=== PATIENT | female | born 1935 | race Caucasian/White ===

== ENCOUNTER 2019-09-25 12:32 | Outpatient (CLI) | payer MEDICARE, SELFPAY ==
--- NOTE | ~2019-09-25 | XR_ITS ---
XR wrist LT min 3V, XR hand LT min 3V 09/25/2019 13:00 Indication: Left wrist pain after fall. Procedure: 4 views left wrist. 3 views left hand Comparison: No prior studies for comparison. Findings: There is a nondisplaced impaction fracture of the distal radial metaphysis. There is modera te polyarticular osteoarthritis involving the first CMC, MCP and interphalangeal joints there are loo se bodies adjacent to the first CMC joint. Impression: 1: Nondisplaced impaction fracture of the radial metaphysis. 2: Moderate polyarticular osteoarthritis. Reviewed, dictated and finalized at location A. Impression: 1: Nondisplaced impaction fracture of the radial metaphysis. 2: Moderate polyarticular osteoarthritis. Impression: 1: Nondisplaced impaction fracture of the radial metaphysis. 2: Moderate polyarticular osteoarthritis.
== END 2019-09-25 12:33 | disposition home or self-care (01) ==
LOC: CHSIMG 12:41
PROVIDERS: PCP Internal Medicine; Visit Provider Internal Medicine
DX: M25.532 Pain in left wrist (principal)
CPT/HCPCS: 73110; 73130

== ENCOUNTER 2019-10-04 09:59 | Outpatient (CLI) | payer MEDICARE, SELFPAY ==
--- NOTE | ~2019-10-04 | XR_ITS ---
XR wrist LT min 3V DATE: 10/04/2019 10:24 INDICATION: Follow-up of distal radial fracture TECHNIQUE: 3 views COMPARISON: 09/25/2019 left breast FINDINGS: There is a fiberglass cast of the left wrist, providing external fixation for a nondisplace d distal radial metaphyseal fracture. There is minimal dorsal inclination of distal radial articular surface. Radiocarpal alignment is preserved. Osteoarthritis at the first carpometacarpal joint. IMPRESSION: Casted nondisplaced distal radial metaphyseal fracture with minimal dorsal inclination of the distal radial articular surface Reviewed, dictated and finalized at location A.
== END 2019-10-04 10:00 | disposition home or self-care (01) ==
LOC: CHSIMG 10:02
PROVIDERS: PCP Internal Medicine; Visit Provider Internal Medicine
DX: S52.502D Unspecified fracture of the lower end of left radius, subsequent encounter for closed fracture with routine healing (principal)
CPT/HCPCS: 73110

== ENCOUNTER 2019-10-18 09:07 | Outpatient (CLI) | payer MEDICARE, SELFPAY ==
--- NOTE | ~2019-10-18 | XR_ITS ---
EXAMINATION: XR wrist LT min 3V DATE: 10/18/2019 09:37 INDICATION: Radius fracture follow-up TECHNIQUE: Posteroanterior, ulnar deviation, oblique, and lateral views of the left wrist were obtain ed. COMPARISON: 10/04/2019 FINDINGS: There is a transverse fracture of the distal radius. There appears to be mild increase in c alcified callus at the fracture site. Bone alignment is normal. Fine osseous detail is obscured by th e cast material. There is moderate osteoarthritis at the triscaphe and first carpometacarpal joints. IMPRESSION: 1. Casted distal radius fracture with apparent mild increase in calcified callus. Reviewed, dictated and finalized at location A. IMPRESSION: 1. Casted distal radius fracture with apparent mild increase in calcified callu s.
== END 2019-10-18 09:08 | disposition home or self-care (01) ==
LOC: CHSIMG 09:10
PROVIDERS: PCP Internal Medicine; Visit Provider Internal Medicine
DX: S52.502D Unspecified fracture of the lower end of left radius, subsequent encounter for closed fracture with routine healing (principal)
CPT/HCPCS: 73110

== ENCOUNTER 2019-11-12 09:40 | Outpatient (CLI) | payer MEDICARE, SELFPAY ==
--- NOTE | ~2019-11-12 | XR_ITS ---
XR wrist LT 2V 11/12/2019 09:56 Indication: Left wrist pain Procedure: 4 views left wrist Comparison: Comparison to multiple prior studies sequentially, with oldest reviewed study dated 09/24. Findings: There is a healing impaction fracture of the distal radial metaphysis without displacement. Anatomic alignment. There is polyarticular osteoarthritis. Impression: 1: Healing distal radial metaphyseal fracture. Reviewed, dictated and finalized at location B. Impression: 1: Healing distal radial metaphyseal fracture.
== END 2019-11-12 09:41 | disposition home or self-care (01) ==
PROVIDERS: PCP Internal Medicine; Visit Provider Internal Medicine
DX: S52.502D Unspecified fracture of the lower end of left radius, subsequent encounter for closed fracture with routine healing (principal)
CPT/HCPCS: 73100

== ENCOUNTER 2019-11-21 11:01 | Outpatient (RCR) | payer MEDICARE, SELFPAY ==
--- NOTE | 2019-11-21 11:56 | OTOPEVAL ---
Thank you for referring Zoey Rubin to [facility]. Please review, sign, date and return this plan of care ERICA. I agree with and certify that the following plan of care is medically necessary. Referring Physician Date Admitting Provider: Attending Provider: Zia Saleh MD Referring Provider: *OT Outpatient Evaluation Start: 11/21/19 11:03 Freq: Status: Active Protocol: Document 11/21/19 11:03 [facility] [place] 11/21/19 11:49 [facility] [place] [id number] Therapy Assessment Status Assessment Status Assessment Status Evaluation Outpatient Past Medical History Cardiovascular History Hx Hypertension Yes Evaluation Information Problem Diagnosis Decreased ROM and strength, L wrist Onset 09/30/19 Cause L distal radius fracture Subjective Information Patient reports that she fell Query Text:As Reported By Patient/ off of a chair while washing Family windows and broke her L wrist. Patient was in a cast for 6 weeks and had it removed last week. Patient reports that she has not been doing much of anything since she had the cast removed. Patient states that she has a orthosis that she bought off the shelf but has not been using it at all. Patient reports that she is able to perform bathing and dressing as well as some cooking with minimal pain. Patient states that she has not been doing any cleaning. Patient does not drive. Prior Level of Function Activity Level (Last 3 Months) Hand Dominance Right Activity of Daily Living Ability Independent Indoor/Home Mobility Independent Community Mobility Independent Stairs Ability Independent Functional Cognition (Planning, Shopping Independent , Taking Medications) Cooking Yes Cleaning Yes Laundry Yes Shopping Yes Driving No Home Setting Home Type House Environmental Barriers Stairs, 2-4 Living Situation With Spouse Mobility Assistive Devices (Used Last 3 None Months) Bathroom Environment Shower, Open Pain Assessment Timing of Pain Assessment
--- NOTE | 2020-03-23 10:04 | PCOTNOTE ---
Patient is discharged from skilled OT services as patient cancelled her last apt and did not wish to schedule additional sessions. MS
== END 2019-11-28 23:59 | disposition home or self-care (01) ==
LOC: CHSOT 11:01
PROVIDERS: PCP Internal Medicine; Visit Provider Internal Medicine
DX: S52.502D Unspecified fracture of the lower end of left radius, subsequent encounter for closed fracture with routine healing (principal)
CPT/HCPCS: 97014; 97110; 97140; 97165; G0283

== ENCOUNTER 2022-05-31 09:47 | Outpatient (CLI) | payer MEDICARE, SELFPAY ==
--- NOTE | ~2022-05-31 | XR_ITS ---
EXAMINATION: XR lumbar spine 2-3V DATE: 05/31/2022 10:36 INDICATION: Back pain TECHNIQUE: Anteroposterior and lateral views of the lumbar spine, and cone-down lateral view of the l umbosacral junction were obtained. COMPARISON: None. FINDINGS: There is no fracture, dislocation, or subluxation. There is mild loss of intervertebral dis c space height at L3-4 and L4-5 and moderate loss of disc space height at L5-S1. The vertebral body h eights are maintained. Small degenerative osteophytes project from the anterior endplates of multiple vertebral bodies. There is moderate facet joint osteoarthritis of the lower lumbar spine. Calcified atherosclerosis is noted. Surgical clips in the right upper quadrant are likely from prior cholecyste ctomy. There are phleboliths of the pelvis. IMPRESSION: 1. Moderate lumbar spondylosis without acute findings. Reviewed, dictated and finalized at location L. [employer]
[2022-05-31 10:07] LABS: Basophils Absolute Auto 0.06 K/mm3 (0.00-0.10); Basophils Percent Auto 0.8 % (0.0-1.0); Eosinophils Absolute Auto 0.13 K/mm3 (0.02-0.50); Eosinophils Percent Auto 1.7 % (1.0-6.0); Hematocrit 40.3 % (35.0-42.0); Immature Granulocyte Absolute 0.02 K/mm3 (0.00-0.00); Immature Granulocyte Percent A 0.3 % (0.0-0.0); Lymphocytes Absolute Auto 2.57 K/mm3 (1.10-4.50); Lymphocytes Percent Auto 33.6 % (18.0-42.0); Mean Corpuscular HGB Conc 32.3 g/dL (32.0-36.0); Monocytes Absolute Auto 0.51 K/mm3 (0.10-0.90); Monocytes Percent Auto 6.7 % (2.0-11.0); Neutrophils Absolute Auto 4.4 K/mm3 (1.7-7.2); Neutrophils Percent Auto 56.9 % (50.0-70.0); Platelet Count Result 269 K/mm3 (150-420); Red Blood Count 4.48 M/mm3 (4.20-5.40); Red Cell Distribution Width 12.6 % (11.6-14.4); White Blood Count 7.6 K/mm3 (4.8-10.8)
[2022-05-31 10:16] LABS: Add Urine Microscopic? YES; Appearance Urine Cloudy (Clear); Bilirubin Urine Negative (Negative); Blood Urine Trace-Intact (Negative); Glucose Urine UA Trace (Negative); Ketones Urine 1+ (Negative); Leukocyte Esterase Ur 2+ (Negative); Nitrate Urine Negative (Negative); Protein Urine Trace (Negative); Specific Grav Ur >= 1.030 (1.010-1.020); pH Urine 5.5 (5.0-8.0)
[2022-05-31 10:17] LABS: MALB Creatinine Ratio 26.4 mg/g (0-30); Microalbumin Urine Random 56.7 mg/L
[2022-05-31 10:19] LABS: Hemoglobin A1C 6.7 % (<5.7)
[2022-05-31 10:20] LABS: Color Urine Yellow (Yellow)
[2022-05-31 10:21] LABS: Bacteria Urine 2+ /hpf; RBC Urine 0-2 /hpf (0-2); Squamous Epithelial Cell Urine Occasional /hpf (Few)
[2022-05-31 11:09] LABS: Alanine Aminotransferase 24 U/L (14-59); Albumin Level 3.8 g/dL (3.4-5.0); Alkaline Phosphatase 55 U/L (46-116); Anion Gap 10 mmol/L (8-16); Aspartate Amino Transferase 20 U/L (15-37); Bilirubin,Total 0.4 mg/dL (0.00-1.00); Blood Urea Nitrogen 17 mg/dL (7-18); Carbon Dioxide 31 mmol/L (21-32); Chloride 101 mmol/L (98-108); Cholesterol 162 mg/dL (0-200); Estimated Glomerular Filt Rate 51; Glucose 227 mg/dL (70-99); HDL Direct 64 mg/dL (40-60); LDL Cholesterol Calculated 51 mg/dL (<130); Osmolality Calculated 302 mOsm/kg (285-295); Potassium 3.9 mmol/L (3.5-5.1); Sodium 142 mmol/L (136-145); Total Protein 7.5 g/dL (6.4-8.2); Triglycerides 235 mg/dL (0-150)
== END 2022-05-31 09:48 | disposition home or self-care (01) ==
LOC: CHSLAB 09:50
PROVIDERS: PCP Internal Medicine; Visit Provider Internal Medicine
DX: I10 Essential (primary) hypertension (principal); E11.9 Type 2 diabetes mellitus without complications; E78.2 Mixed hyperlipidemia; M54.50 Low back pain, unspecified; M43.06 Spondylolysis, lumbar region
CPT/HCPCS: 36415; 72100; 80053; 80061; 81001; 82043; 83036; 84443; 85025